=== PATIENT | male | born 1955 | race Caucasian/White ===

== ENCOUNTER 2022-03-11 15:38 | Emergency (ER) | payer MEDICARE, MEDICAID ==
[~2022-03-11] VITALS: Ht 167.6 cm; Wt 77.1 kg
[2022-03-11 15:43] VITALS: BP_SYST 151
--- NOTE | 2022-03-11 15:58 | NUR ---
Patient to ER bed 2 to gown for evaluation. Side rails up. Report given to Eboni ALLEN.
--- NOTE | 2022-03-11 15:59 | NUR ---
C/C 10/10 lower back pain x 3 days, denies fall, denies trauma to area. Patient daughter at bedside to assist with translation.
--- NOTE | 2022-03-11 16:00 | NUR ---
Urine cup given for sample, pending void
[2022-03-11] MEDS: DIPHENHYDRAMINE INJ 50 MG/ML VIAL IM ONE (16:36)
[2022-03-11] MEDS: MORPHINE 4 MG INJ. 4 MG/ML VIAL IM ONE (16:37)
--- NOTE | 2022-03-11 16:40 | NUR ---
Patient taken to Xray for exam via w/c
--- NOTE | 2022-03-11 16:52 | NUR ---
Patient medicated for pain
[2022-03-11 17:18] VITALS: BP_SYST 151
--- NOTE | 2022-03-11 17:18 | NUR ---
Patient given written and verbal discharge instructions and verbalizes understanding. ER MD discussed with patient the results and treatment provided. Patient in stable condition. ID arm band removed. IV catheter removed intact and dressing applied, no active bleeding. Rx of given. Patient educated on pain management and to follow up with PMD. Pain Scale 3/10 Opportunity for questions provided and answered. Medication side effect fact sheet provided.
== END 2022-03-11 17:18 | disposition home or self-care (01) ==
LOC: SED 15:38
DX: S39.012A Strain of muscle, fascia and tendon of lower back, initial encounter (principal); E11.9 Type 2 diabetes mellitus without complications; I10 Essential (primary) hypertension; Z88.6 Allergy status to analgesic agent
CPT/HCPCS: 72100; 96372; 99284; J1200; J2270

== ENCOUNTER 2022-09-11 01:49 | Emergency (ER) | payer MEDICARE, MEDICAID ==
[~2022-09-11] VITALS: Ht 157.5 cm; Wt 72.6 kg
[2022-09-11 02:09] VITALS: BP_SYST 156
--- NOTE | 2022-09-11 02:10 | NUR ---
Dr. De La Torre at bedside with patient for evaluation.
--- NOTE | 2022-09-11 02:10 | NUR ---
Patient to ER bed 07 to gown for evaluation. Side rails up.
--- NOTE | 2022-09-11 02:14 | NUR ---
ASSISTING PRIMARY RN: RECEIVED PT ACCOMPANIED BY HIS DAUGHTER C/O HEADACHE X2 HRS. PT DENIES DIZZINESS, DENIES BLURRY VISION. NO NUERO DEFICIT NOTED. 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 PT AMBULATED WITH STEADY GAIT TO RM 7, TRANSFER HIMSELF WITHOUT ANY ASSISTANCE TO BED. PT DENIES NUMBNESS AND TINGLING SENSATION DURING TRIAGE. PMH:STROKE, HEART PRESENTED HERE AAOX4, NO SOB NOTED AND NAD. PER DAUGHTER AT BEDSIDE PT WAS POSITIVE FOR COVID 6 DAYS AGO. ISOLATION PRECAUTION INITIATED. PT GOWNED AND PLACED ON CARDIAC MONITORS.
--- NOTE | 2022-09-11 02:19 | NUR ---
DAUGHTER PATIENT DEMANDED FOR STAFF NAMES DURING TRIAGE PER DAUGHTER " HE NEEDS TO BE ATTENDED OBIE AND HE NEEDS TO BE IN ROOM RIGHT AWAY". EXPLAINED TO PT AND HIS DAUGHTER THE NEEDS FOR PT TO BE ISOLATED DUE TO SHE REPORTED THAT PT IS POSITIVE FOR COVID. PER DAUGHTER " I NEED STAFF NAME FOR FUTURE REFERENCE". INFORMED HER THAT [employer] WILL TALKED TO THEM WHEN SHE IS AVAILABLE, INFORMED HER [employer] IS TRANSPORTING PATIENT AT THIS TIME.
--- NOTE | 2022-09-11 02:48 | NUR ---
Pt O2 sat was 88% on RA. Pt put on 2L NC, O2 sat now 96%. made aware.
[2022-09-11 02:57] LABS: BASOPHILS % (AUTO) 0.5 % (0.0-2.0); EOSINOPHILS # (AUTO) 0.2 K/uL (0.0-0.4); EOSINOPHILS % (AUTO) 4.5 % (0.0-4.0); HEMATOCRIT 39.5 % (36-54); HEMOGLOBIN 14.1 g/dL (14.0-18.0); LYMPHOCYTES # (AUTO) 1.7 K/uL (1.0-5.5); LYMPHOCYTES % (AUTO) 42.6 % (20.5-51.5); MEAN CORPUSCULAR HEMOGLOBIN 31 pg (27-31); MEAN CORPUSCULAR HGB CONC 36 % (32-36); MEAN CORPUSCULAR VOLUME 86 fL (79.0-98.0); MONOCYTES # (AUTO) 0.5 K/uL (0.0-1.0); MONOCYTES % (AUTO) 11.6 % (1.7-9.3); NEUTROPHILS # (AUTO) 1.6 K/uL (1.8-7.7); NEUTROPHILS % (AUTO) 40.8 % (40.0-70.0); PLATELET COUNT (AUTO) 163 K/uL (130-430); RED CELL DISTRIBUTION WIDTH 13.2 % (9.0-15.0)
[2022-09-11 03:13] LABS: ANION GAP 9 (5-15); CALCIUM 7.9 mg/dL (8.4-11.0); CHLORIDE 105 mmol/L (98-107); CREATININE 1.81 mg/dL (0.55-1.30); GLUCOSE 148 mg/dL (70-99); POTASSIUM 3.4 mmol/L (3.5-5.1); UREA NITROGEN, BLOOD 26 mg/dL (8-21)
[2022-09-11 03:15] LABS: GFR AFRICAN AMERICAN 49 mL/min (>90)
[2022-09-11 03:19] LABS: ALANINE AMINOTRANSFERASE 31 U/L (12-78); ALBUMIN 3.7 g/dL (3.4-4.8); ASPARTATE AMINOTRANSFERASE 23 U/L (10-37); C-REACTIVE PROTEIN QUANT 0.4 mg/dL (0-0.5); LACTATE DEHYDROGENASE 146 U/L (85-227); TOTAL BILIRUBIN 0.3 mg/dL (0.0-1.0)
[2022-09-11 03:20] LABS: INR 0.9 (0.80-1.20); PROTHROMBIN TIME 9.7 SECS (9.5-12.5)
--- NOTE | 2022-09-11 03:44 | NUR ---
Pt desat to 88%on 2L NC. Pt taught how to take effective resps and O2 sat now 95% on 2L NC.
--- NOTE | 2022-09-11 04:07 | NUR ---
URINE COLLECTED AND SENT TO LAB.
[2022-09-11] MEDS ORDERED: MORPHINE 4 MG INJ. 4 MG/ML VIAL IVP ONE (04:15)
[2022-09-11] MEDS ORDERED: ONDANSETRON HCL 4 MG/2 ML VIAL IVP ONE (04:15)
[2022-09-11 05:16] VITALS: BP_SYST 138
--- NOTE | 2022-09-11 05:45 | NUR ---
Patient does not wish to proceed with medical care recommended by Dr. De La Torre. Patient given information related to possible complications, up to and including , which could occur as a result of leaving hospital at this time. Patient verbalizes understanding of risks involved leaving against medical advice. Patient has signed AMA form.
[2022-09-11 06:04] LABS: BILIRUBIN,URINE NEGATIVE (NEGATIVE); BLOOD, URINE NEGATIVE (NEGATIVE); COLOR,URINE YELLOW (YELLOW); GLUCOSE,URINE NEGATIVE (NEGATIVE); KETONES,URINE TRACE (NEGATIVE); LEUKOCYTE ESTERASE ,URINE NEGATIVE (NEGATIVE); NITRITE, URINE NEGATIVE (NEGATIVE); PROTEIN URINE 1+ (NEGATIVE); UROBILINOGEN,URINE 0.2 (0.2-1.0)
[2022-09-11 06:06] LABS: CLARITY/URINE HAZY (CLEAR)
[2022-09-11 06:07] LABS: BACTERIA,URINE None Seen /HPF (None Seen); RBC,URINE NONE SEEN /HPF (0-3); WBC,URINE NONE SEEN /HPF (0-3)
[2022-09-11 06:09] LABS: MUCUS,URINE None Seen /LPF (None Seen)
== END 2022-09-11 05:45 | disposition left against medical advice (07) ==
LOC: SED 01:49
DX: U07.1 COVID-19 (principal); R51.9 Headache, unspecified; R09.02 Hypoxemia; N28.9 Disorder of kidney and ureter, unspecified; I50.9 Heart failure, unspecified; I11.0 Hypertensive heart disease with heart failure; E11.9 Type 2 diabetes mellitus without complications; Z88.6 Allergy status to analgesic agent; Z79.899 Other long term (current) drug therapy
CPT/HCPCS: 99285; 96374; 70450; 71045; 96375; 87426; 80053; 81000; 82550; 83880; 83615; 85025; 85379; 85610; 85730; 86140; 87040; 87086; 84484; 36415; 93005; 76376; 82803; 83605; J2405; J2270

== ENCOUNTER 2023-07-13 02:43 | Inpatient (IN) | payer MEDICAID, MEDICARE ==
[~2023-07-13] VITALS: Ht 165.1 cm; Wt 77.1 kg
[2023-07-13 02:50] VITALS: BP_SYST 138; PULSE 102; RESP 16; TEMP 97.9; O2SAT 97
[2023-07-13] MEDS ORDERED: ONDANSETRON HCL 4 MG/2 ML VIAL IVP ONE (03:00)
[2023-07-13] MEDS ORDERED: NACL 0.9% 1,000 ML IV ONE ×3 (03:00→07:30)
[2023-07-13 03:40] LABS: BASOPHILS % (AUTO) 0.2 % (0.0-2.0); EOSINOPHILS # (AUTO) 0.1 K/uL (0.0-0.4); EOSINOPHILS % (AUTO) 0.8 % (0.0-4.0); HEMATOCRIT 41.4 % (36-54); HEMOGLOBIN 13.9 g/dL (14.0-18.0); LYMPHOCYTES # (AUTO) 0.3 K/uL (1.0-5.5); LYMPHOCYTES % (AUTO) 2.7 % (20.5-51.5); MEAN CORPUSCULAR HEMOGLOBIN 30 pg (27-31); MEAN CORPUSCULAR HGB CONC 34 % (32-36); MEAN CORPUSCULAR VOLUME 90 fL (79.0-98.0); MONOCYTES # (AUTO) 0.4 K/uL (0.0-1.0); NEUTROPHILS # (AUTO) 9.6 K/uL (1.8-7.7); NEUTROPHILS % (AUTO) 92.3 % (40.0-70.0); PLATELET COUNT (AUTO) 195 K/uL (130-430); RED BLOOD CELL COUNT(AUTO) 4.62 MIL/uL (4.2-6.2); RED CELL DISTRIBUTION WIDTH 12.8 % (9.0-15.0); WHITE BLOOD COUNT (AUTO) 10.4 K/uL (4.8-10.8)
[2023-07-13 03:45] LABS: ANION GAP 12 (5-15); CALCIUM 8.2 mg/dL (8.4-11.0); CARBON DIOXIDE 27 mmol/L (23-29); CHLORIDE 103 mmol/L (98-107); CREATININE 1.47 mg/dL (0.55-1.30); GFR AFRICAN AMERICAN 62 mL/min (>90); GLUCOSE 157 mg/dL (74-106); POTASSIUM 3.4 mmol/L (3.5-5.1); SODIUM SERUM 142 mmol/L (136-145); UREA NITROGEN, BLOOD 19 mg/dL (8-21)
[2023-07-13 03:47] LABS: GFR NON AFRICAN-AMERICAN 51 mL/min (>90)
[2023-07-13 03:52] LABS: ALANINE AMINOTRANSFERASE 23 U/L (12-78); ALBUMIN 3.9 g/dL (3.4-4.8); ASPARTATE AMINOTRANSFERASE 15 U/L (10-37); TOTAL BILIRUBIN 0.8 mg/dL (0.0-1.0); TOTAL PROTEIN, SERUM 6.9 g/dL (6.4-8.3)
[2023-07-13 05:25] LABS: BILIRUBIN,URINE NEGATIVE (NEGATIVE); BLOOD, URINE TRACE (NEGATIVE); CLARITY/URINE CLEAR (CLEAR); COLOR,URINE YELLOW (YELLOW); GLUCOSE,URINE NEGATIVE (NEGATIVE); KETONES,URINE NEGATIVE (NEGATIVE); LEUKOCYTE ESTERASE ,URINE NEGATIVE (NEGATIVE); NITRITE, URINE NEGATIVE (NEGATIVE); PROTEIN URINE 2+ (NEGATIVE); UROBILINOGEN,URINE 0.2 (0.2-1.0)
[2023-07-13] MEDS ORDERED: cefTRIAXone 1 GM in D5W 50 ML IV ONE (05:30)
[2023-07-13] MEDS ORDERED: cefTRIAXone 1 GM VIAL ONE (05:41)
[2023-07-13 05:48] LABS: BACTERIA,URINE RARE /HPF (None Seen)
[2023-07-13] MEDS ORDERED: CLOP75TA32 PO (06:58)
[2023-07-13] MEDS ORDERED: PRO10 PO (06:58)
[2023-07-13] MEDS ORDERED: NOR10 PO (06:58)
[2023-07-13] MEDS ORDERED: LIP10 PO (06:58)
[2023-07-13] MEDS ORDERED: PRO40 PO (06:58)
[2023-07-13] MEDS ORDERED: METF-379 PO (06:58)
[2023-07-13] MEDS ORDERED: POTA15TA6 PO (06:58)
[2023-07-13 06:59] LABS: INFLUENZA TYPE A negative (NEGATIVE); INFLUENZA TYPE B NEGATIVE (NEGATIVE)
[2023-07-13] MEDS ORDERED: PRO20 PO (07:25)
[2023-07-13] MEDS ORDERED: LIP20 PO (07:25)
[2023-07-13] MEDS ORDERED: INSULIN REGULAR, HUMAN 100 UNITS/ML, 3 ML VIAL (humuLIN R) SUBCUT PRN (07:30)
[2023-07-13] MEDS ORDERED: D5W 1,000 ML IV PRN (08:15)
[2023-07-13] MEDS ORDERED: DEXTROSE 50%-WATER 50 ML DISP.SYRIN IVP PRN (08:15)
[2023-07-13] MEDS ORDERED: GLUCOSE (DEXTROSE) ORAL GEL -Adults PO PRN (08:15)
[2023-07-13 09:45] VITALS: BP_SYST 156; PULSE 100; RESP 20; TEMP 99.5; O2SAT 96
[2023-07-13] MEDS ORDERED: POTASSIUM CHLORIDE 20 MEQ TAB.PRT.SR PO ONE (13:15)
[2023-07-13] MEDS ORDERED: ACETAMINOPHEN 325 MG TABLET PO PRN ×2 (13:15→13:30)
[2023-07-13] MEDS: NACL 0.9% 1,000 ML IV SCH ×2 (13:35→18:05)
[2023-07-13 16:37] VITALS: BP_SYST 145; PULSE 85; RESP 18; TEMP 99; O2SAT 95
[2023-07-13 19:00] VITALS: O2SAT 100
[2023-07-13 20:00] VITALS: BP_SYST 146; PULSE 83; RESP 20; TEMP 99.3; O2SAT 94
[2023-07-13] MEDS ORDERED: ATORVASTATIN 20 MG TABLET PO SCH (21:00)
[2023-07-14] MEDS ORDERED: cefTRIAXone 1 GM IVPB PREMIX 50 ML IV SCH
[2023-07-14] MEDS ORDERED: ONDANSETRON HCL 4 MG/2 ML VIAL IVP PRN (00:15)
[2023-07-14 00:45] VITALS: BP_SYST 152; PULSE 80; RESP 20; TEMP 97.5; O2SAT 95
[2023-07-14] MEDS: NACL 0.9% 1,000 ML IV SCH ×3 (00:46→15:55)
[2023-07-14] MEDS ORDERED: cefTRIAXone 1 GM IVPB PREMIX 50 ML IV ONE (01:06)
[2023-07-14] MEDS ORDERED: metroNIDAZOLE 500 mg/NS 100 ML IV ONE (01:07)
[2023-07-14 05:19] LABS: BASOPHILS % (AUTO) 0.3 % (0.0-2.0); EOSINOPHILS # (AUTO) 0.2 K/uL (0.0-0.4); EOSINOPHILS % (AUTO) 3.2 % (0.0-4.0); HEMATOCRIT 38.3 % (36-54); HEMOGLOBIN 12.8 g/dL (14.0-18.0); LYMPHOCYTES # (AUTO) 1.3 K/uL (1.0-5.5); LYMPHOCYTES % (AUTO) 23.2 % (20.5-51.5); MEAN CORPUSCULAR HEMOGLOBIN 30 pg (27-31); MEAN CORPUSCULAR HGB CONC 33 % (32-36); MEAN CORPUSCULAR VOLUME 90 fL (79.0-98.0); MONOCYTES # (AUTO) 0.6 K/uL (0.0-1.0); MONOCYTES % (AUTO) 11.1 % (1.7-9.3); NEUTROPHILS # (AUTO) 3.4 K/uL (1.8-7.7); NEUTROPHILS % (AUTO) 62.2 % (40.0-70.0); PLATELET COUNT (AUTO) 167 K/uL (130-430); RED BLOOD CELL COUNT(AUTO) 4.25 MIL/uL (4.2-6.2); RED CELL DISTRIBUTION WIDTH 13.1 % (9.0-15.0); WHITE BLOOD COUNT (AUTO) 5.4 K/uL (4.8-10.8)
[2023-07-14 05:43] LABS: CREATININE 1.23 mg/dL (0.55-1.30); POTASSIUM 3.4 mmol/L (3.5-5.1)
[2023-07-14] MEDS: metroNIDAZOLE 500 mg/NS 100 ML IV SCH ×3 (07:01→13:25)
[2023-07-14 08:00] VITALS: BP_SYST 148; PULSE 99; RESP 18; TEMP 97.9; O2SAT 96; O2SAT 98
[2023-07-14] MEDS ORDERED: FLUoxetine HCL 20 MG CAPSULE (PROzac) PO SCH (09:00)
[2023-07-14] MEDS ORDERED: amLODIPine BESYLATE 10 MG TABLET PO SCH (09:00)
[2023-07-14] MEDS ORDERED: PANTOPRAZOLE SODIUM 40 MG TAB PO SCH (09:00)
[2023-07-14] MEDS ORDERED: CLOPIDOGREL BISULFATE 75 MG TABLET PO SCH (09:00)
[2023-07-14] MEDS ORDERED: POTASSIUM CHLORIDE 20 MEQ TAB.PRT.SR PO SCH (09:00)
[2023-07-14 11:30] VITALS: BP_SYST 139; PULSE 78; RESP 20; TEMP 97.5; O2SAT 96
[2023-07-14 14:57] VITALS: BP_SYST 139; PULSE 78; RESP 20; TEMP 97.5; O2SAT 96
== END 2023-07-14 23:53 | disposition home or self-care (01) | DRG 720 ==
LOC: SED 02:43 → STU 07:17
PROVIDERS: ADMIT Internal Medicine; ATTEND Internal Medicine
DX: A41.9 Sepsis, unspecified organism (principal); E87.20 Acidosis, unspecified; N17.9 Acute kidney failure, unspecified; A04.9 Bacterial intestinal infection, unspecified; I10 Essential (primary) hypertension; Z20.822 Contact with and (suspected) exposure to COVID-19; E87.6 Hypokalemia; E86.0 Dehydration; I25.10 Atherosclerotic heart disease of native coronary artery without angina pectoris; F32.A Depression, unspecified; K21.9 Gastro-esophageal reflux disease without esophagitis; E78.5 Hyperlipidemia, unspecified; E11.9 Type 2 diabetes mellitus without complications; Z88.6 Allergy status to analgesic agent; Z87.11 Personal history of peptic ulcer disease; Z87.442 Personal history of urinary calculi
CPT/HCPCS: 36415; 71045; 74170-TC; 76376; 76770; 80048; 80053; 81000; 82962; 83605; 84484; 85025; 87040; 87045-TC; 87046; 89055; 93005; 96365; 96375; 99285; G0378; J0696; J1815; J2405; J3490; J7030; Q9967

== ENCOUNTER 2024-06-04 16:59 | Emergency (ER) | payer MEDICARE, MEDICAID ==
[~2024-06-04] VITALS: Ht 162.6 cm; Wt 81.6 kg
[~2024-06-04 16:59] MED LIST: CLOP75TA32 PO; LIP20 PO; NOR10 PO; POTA15TA6 PO; PRO20 PO; PRO40 PO
[2024-06-04 17:00] VITALS: BP_SYST 170; PULSE 95; RESP 19; TEMP 98.4; O2SAT 96
[2024-06-04] MEDS: HYDROcodone/ACETAMIN 10-325 MG TAB PO ONE (18:05)
[2024-06-04] MEDS: KETOROLAC TROMETHAMINE 60 MG/2 ML VIAL IM ONE (18:05)
[2024-06-04 19:07] VITALS: RESP 18; TEMP 98.7
[2024-06-04] MEDS ORDERED: HYDR-3927 PO (19:49)
[2024-06-04] MEDS ORDERED: IBUP-1971 PO (19:52)
[2024-06-04 20:09] VITALS: BP_SYST 172; PULSE 88; O2SAT 93
== END 2024-06-04 20:00 | disposition home or self-care (01) ==
LOC: SED 16:59
DX: M71.21 Synovial cyst of popliteal space [Baker], right knee (principal); M79.604 Pain in right leg; E11.9 Type 2 diabetes mellitus without complications; I10 Essential (primary) hypertension; E78.5 Hyperlipidemia, unspecified; Z98.890 Other specified postprocedural states; Z88.6 Allergy status to analgesic agent; Z79.899 Other long term (current) drug therapy; Z79.2 Long term (current) use of antibiotics
CPT/HCPCS: 99285; 93971; 73560; 73590; 96372; J1885